=== PATIENT | female | born 2000 | race Caucasian/White ===

== ENCOUNTER → 2021-06-11 | Emergency (ER) | payer OTHER ==
[~2021-06-11] VITALS: Ht 167.6 cm; Wt 74.8 kg
[~2021-06-11] MED LIST: CEFU250T47 PO
== END ==
LOC: ER 12:41
DX: J02.9 Acute pharyngitis, unspecified (principal); U07.1 COVID-19; J45.909 Unspecified asthma, uncomplicated
CPT/HCPCS: 87430; A9270; J1100

== ENCOUNTER → 2022-05-18 | Outpatient (CLI) | payer OTHER ==
[2022-05-20 12:09] LABS: HSV-1 DNA Positive (Negative); HSV-2 DNA Negative (Negative)
== END ==
LOC: LAB 14:03 → LAB SHORT 14:03
PROVIDERS: Physician Assistant
DX: L98.8 Other specified disorders of the skin and subcutaneous tissue (principal)
CPT/HCPCS: 87529